=== PATIENT | female | born 2000 | race Caucasian/White ===

== ENCOUNTER 2023-12-27 20:09 | Inpatient (IN) | payer BC ==
[~2023-12-27] VITALS: Ht 162.6 cm; Wt 83.0 kg
[2023-12-27] VITALS (12 sets, daily range): BP systolic 111–145; BP diastolic 53–92; PULSE 67–94; TEMP 98.2–98.6
[2023-12-27] MEDS ORDERED: LR 1,000 ML IV PRN (20:15)
--- NOTE | 2023-12-27 20:15 | NUR ---
PATIENT ARRIVED TO UNIT VIA WHEELCHAIR WITH SPOUSE. PATIENT STATES HER CONTRACTIONS STARTED AROUND 1700 AFTER HER APPOINTMENT IN THE OFFICE. DENEIS LEAKING OF FLUID BUT STATES SHE HAS HAD SOME LIGHT BLOOD BUT SHE WAS CHECKED IN THE OFFICE DURING HER APPOINTMENT. PATIENT CHANGED INTO HOSPITAL GOWN. [id number]. SVE NOTED.
[2023-12-27 20:54] LABS: BASO # 0.1 K/mm3 (0.0-0.2); BASO % 0.4 % (0.0-2.0); EOS # 0.1 K/mm3 (0.0-0.7); EOS % 0.3 % (0.0-4.0); GRAN # 11.4 K/mm3 (1.4-6.5); GRAN % 79.5 % (42.2-75.2); HEMOGLOBIN 11.1 g/dl (12.5-16.0); LYMPH # 1.8 K/mm3 (1.2-3.4); LYMPH % 12.2 % (20.0-51.0); MEAN CELL VOLUME 82 fl (80.0-100.0); MEAN CORPUSCULAR HEMOGLOBIN 27 pg (27-31); MEAN CORPUSCULAR HGB CONC 33 g/dl (33.0-37.0); MEAN PLATELET VOLUME 11.6 fl (7.4-10.4); MONO % 6.7 % (1.7-9.3); PLATELET COUNT 278 K/mm3 (130-400); RED BLOOD COUNT 4.13 M/mm3 (4.10-5.30)
[2023-12-27 20:56] LABS: HEMATOCRIT 33.9 % (37.0-47.0)
[2023-12-27] MEDS ORDERED: LR 1,000 ML IV SCH (21:00)
[2023-12-27] MEDS ORDERED: LR & Oxytocin 500 ML IV SCH (21:00)
--- NOTE | 2023-12-27 21:00 | NUR ---
2057- PATIENT SITTING ON EDGE OF BED. DANNY ELDRIDGE AT BEDSIDE EXPLAINS PROCEDURE TO PATIENT. PULSE OX ON. DIFFICULTY TRACING HEART RATE DUE TO MATERNAL POSITIONING. 2099- SROM. PATIENT STATES SHE FEELS A LOT OF PRESSURE IN BOTTOM. SVE 2108- TEST DOSE ADMINISTERED BY DANNY ELDRIDGE. 2114- PATIENT REPOSITIONED IN SEMI FOWLERS. PLAN OF CARE EXPLAINED TO PATIENT AND SIGNIFICANT OTHER. 2127- SVE 2131- PATIENT BEGINS COACHED PUSHING WITH CONTRACTIONS.
[2023-12-27] MEDS ORDERED: ROPivacaine PF 0.2% 200 ML IV ONE (21:14)
[2023-12-27] MEDS ORDERED: diphenhydrAMINE 50 MG/ML 1 ML VIAL IV PRN (21:30)
[2023-12-27] MEDS ORDERED: Naloxone 0.4 MG/ML VIAL IV PRN (21:30)
[2023-12-27] MEDS ORDERED: Ondansetron 4 MG/2 ML VIAL IV PRN (21:30)
[2023-12-27] MEDS ORDERED: diphenhydrAMINE 25 MG CAP PO PRN (21:30)
[2023-12-27] MEDS ORDERED: ePHEDrine 50 MG/10 ML VIAL IV PRN (21:30)
--- NOTE | 2023-12-27 23:15 | NUR ---
2216- DR. SINGH NOTIFIED TO HEAD TO THE HOSPITAL TO ASSESS PATIENT'S PUSHING EFFORTS PER PATIENT REQUEST. 2236- DR. SINGH AT BEDSIDE. 2242- DR. SINGH PREFORMS STRAIGHT CATH. DR. SINGH REMAINS AT BEDSIDE TO CONTINUE PUSHING WITH PATIENT. 2306- SPONTANEOUS VAGINAL DELIVERY OF VIABLE BABY BOY. BABY PLACED ON MOTHERS ABDOMEN, CORD CLAMPED BY DR. SINGH AND CUT BY FOB. BABY CARES ASSUMED BY Kieran QUEEN RN. 3- PLACENTA SPONTANEOUSLY DELIVERED THROUGH 2ND DEGREE LACERATION. PITOCIN STARTED AT 333ML/HR. DR. SINGH BEGINS REPAIR OF 2ND DEGREE LACERTION. 2315- RECOVERY STARTED.
[2023-12-28] VITALS (7 sets, daily range): BP systolic 117–140; BP diastolic 58–86; PULSE 66–103; TEMP 97.8–98.6
[2023-12-28] MEDS ORDERED: Phenylephrine/Mineral Oil/Petrolatum 57 GM TUBE RC PRN (00:15)
[2023-12-28] MEDS ORDERED: Witch Hazel 50% Pads Bulk TUB TP PRN (00:15)
[2023-12-28] MEDS ORDERED: Mag/Al Hydrox/Simeth Susp 30 ML CUP PO PRN (00:15)
[2023-12-28] MEDS ORDERED: Naloxone 0.4 MG/ML VIAL IV PRN (00:15)
[2023-12-28] MEDS ORDERED: Measles/Mumps/Rubella Virus Vaccine Live w Diluent 0.5 ML VIAL SQ SCH (00:15)
[2023-12-28] MEDS ORDERED: oxyCODONE 5 MG TAB PO PRN (00:15)
[2023-12-28] MEDS ORDERED: Acetaminophen 500 MG TAB PO PRN (00:15)
[2023-12-28 00:52] LABS: TRICYCLIC ANTIDEPRESS URINE NEGATIVE (NEGATIVE)
[2023-12-28] MEDS ORDERED: Ibuprofen 600 MG TAB PO SCH ×2 (01:00→21:00)
--- NOTE | 2023-12-28 02:40 | NUR ---
0245- PATIENT ABLE TO LIFT BILATERAL LOWER EXTREMITIES. PATIENT SITTING ON THE EDGE OF THE BED. EPIDURAL CATHETER REMOVED WITH TIP INTACT. 0250- PATIENT FELT UNSTEADY WALKING. PATIENT TRANSFERRED TO RESTROOM FOLLOWING DELIVERY VIA [facility]. PERICARE PROVIDED. CLEAN GOWN AND UNDERWEAR ON. PATIENT ABLE TO VOID WITHOUT DIFFICULTY. 0300- PATIENT TRANSFERRED TO ROOM VIA [facility]. PATIENT ORIENTED TO ROOM. PLAN OF CARE EXPLAINED TO PATIENT AND SIGNIFICANT OTHER. QUESTIONS INVITED AND ANSWERED.
[2023-12-28] MEDS ORDERED: Sennosides/Docusate 8.6-50 MG TAB PO SCH (08:00)
[2023-12-28] MEDS ORDERED: Loratadine 10 MG TAB PO PRN (09:00)
[2023-12-28] MEDS ORDERED: IBU600 MG PO (09:33)
[2023-12-28] MEDS ORDERED: Magnes Hydrox (MOM) 80 MG/ML 30 ML CUP PO PRN (21:00)
[2023-12-28] MEDS ORDERED: traZODone 50 MG TAB PO PRN (21:00)
[2023-12-29 09:15] VITALS: BP 129/85; PULSE 86; TEMP 98
--- NOTE | 2023-12-29 09:15 | NUR ---
Rests in bed holding baby. Denies any discomfort at this time. Refused ibuprofen.
--- NOTE | 2023-12-29 12:08 | NUR ---
hops farmworker met with nursing on 12/27 and again this date and confirmed that patient only had history of drug use, none during and current. Nursing voiced they have no concerns and state there is no need for social work consult.
--- NOTE | 2023-12-29 14:15 | NUR ---
Rests in bed, alert. Holds baby lovingly. Family at bedside. Denies any pain or discomfort at this time.
[2023-12-29 16:15] VITALS: BP 123/51; PULSE 84; TEMP 98.2
--- NOTE | 2023-12-29 16:23 | NUR ---
Ibuprofen 600 mg given per request and as ordered.
--- NOTE | 2023-12-29 17:15 | NUR ---
Discharge instructions given. Verbalizes understanding.
== END 2023-12-29 17:25 | disposition home or self-care (01) | DRG 807 ==
LOC: LDRO 20:09 → LDR 20:48 → OB 20:48
PROVIDERS: Obstetrics & Gynecology; ADMIT Obstetrics & Gynecology
PROC: 10E0XZZ Delivery of Products of Conception, External Approach (ICD-10-PCS; principal; 2023-12-27)
PROC: 0KQM0ZZ Repair Perineum Muscle, Open Approach (ICD-10-PCS; 2023-12-27)
DX: O69.89X0 Labor and delivery complicated by other cord complications, not applicable or unspecified (principal); Z37.0 Single live birth; Z3A.38 38 weeks gestation of pregnancy; O99.344 Other mental disorders complicating childbirth; F32.A Depression, unspecified; J45.909 Unspecified asthma, uncomplicated; O99.52 Diseases of the respiratory system complicating childbirth; O70.1 Second degree perineal laceration during delivery
CPT/HCPCS: J2590; J2795; J7120